=== PATIENT | male | born 1975 | race Two or more races ===

== ENCOUNTER → 2022-03-27 | Outpatient (CLI) | payer MEDICAID, SELFPAY ==
--- NOTE | 2022-03-27 11:39 | US_ITS ---
STUDY: THYROID ULTRASOUND REASON FOR EXAM: Male, 46 years old. MASS TECHNIQUE: Ultrasound evaluation of the thyroid was performed with real-time and static franklin-scale imaging. COMPARISON: None. FINDINGS: RIGHT LOBE: The right lobe of the thyroid gland measures 6.2 x 2.0 x 1.5 cm. There is a midpole 0.5 x 0.4 x 0.2 cm mixed solid and cystic nodule with smooth margins.. There are no demonstrated solid, cystic or complex lesions. LEFT LOBE: The left lobe of the thyroid gland measures 5.7 x 2.3 x 1.2 cm. There is a homogeneous echotexture. Midpole 0.4 x 0.3 x 0.2 cm mixed solid and cystic nodule with smooth margins. ISTHMUS: The isthmus measures 0.3 cm . The regional lymph nodes are normal. US/Thyroid IMPRESSION: Multinodular goiter as above. Electronically Signed: Loy Light MD, KIERRA at 15:55 EDT ,
== END | disposition home or self-care (01) ==
LOC: US 11:37
PROVIDERS: PCP Family Medicine; Referring Provider Family Medicine; Visit Provider Family Medicine
DX: R22.1 Localized swelling, mass and lump, neck (principal)
CPT/HCPCS: 76536

== ENCOUNTER 2022-04-15 13:06 | Outpatient (RCR) | payer MEDICAID, SELFPAY ==
--- NOTE | 2022-04-16 08:24 | HP.FCE ---
Floor (Occasional 1-33% of Day): 35# Floor (Frequent 34-66% of Day): 18# Floor (Constant 67-100% of Day): NA Floor PDL: Light-Medium Knee (Occasional 1-33% of Day): 35# Knee (Frequent 34-66% of Day): 18# Knee (Constant 67-100% of Day): NA Knee PDL: Light-Medium Waist (Occasional 1-33% of Day): 35# Waist (Frequent 34-66% of Day): 18# Waist (Constant 67-100% of Day): NA Waist PDL: Light-Medium Shoulder (Occasional 1-33% of Day): 25# Shoulder (Frequent 34-66% of Day): 12.5# Shoulder (Constant 67-100% of Day): NA Shoulder PDL: Light Overhead (Occasional 1-33% of Day): 10# Overhead (Frequent 34-66% of Day): NA Overhead (Constant 67-100% of Day): NA Overhead PDL: Sedentary Comments: lifting from floor- knee and waist levels a LIGHT-MEDIUM PHYSICAL demand level. lifting from shoulder level LIGHT PHYSICAL DEMAND level. lifting from overhead a SEDENTARY PHYSICAL DEMAND Level Bending: Occasional Ability (1-33% of day) Squatting: Occasional Ability (1-33% of day) Kneeling: Occasional Ability (1-33% of day) Comments: with external support Reaching out: Frequent Ability (34-66% of day) Reaching up: Frequent Ability (34-66% of day) Sitting: Frequent Ability (34-66% of day) Walking: Occasional Ability (1-33% of day) Standing: Occasional Ability (1-33% of day) Duration Sedentary Sedentary Light Light Light Medium Medium Medium Heavy Very Heavy Heavy Occasional (0-33% of day) Frequent (34-66% of day) Constant (67-100% of day) 10 # Negligible Negligible 15 # 8 # Negligible 20 # 10# Negli. 35 # 18 # 7 # 50 # 25 # 10 # 75 # 100 # >100 # 38 # 50 # >50 # 15 # 20 # >20 # Weight:: 62 kg Hand Dominance: right Medical History Including Restrictions: Pt was in good health until he began working at [employer]- pt states after two weeks of performing his job duties-. pt started having UE, left shoulder pain- thoracic pain along with bilateral heal pain- pt states he has been to his doctor and is performing stretches that he was given- states this does help but once back at work he becomes very painful in left shoulder-left thoracic region and has develop heal pain- pt has order for physical therapy and has scheduled apt for next week. Diagnoses: bilateral heal pain. low back pain. thoracic back pain. left shoulder pain Symptoms: pain left shoulder. pain left thoracic region. pain right heal. Pain: pt states he has had to leave work due to pain-. pt states current pain is 5/10. heart rate 84. throughout assessment pts pain level did increase to 8/10 and did stop him from completing some of the requested tasks. Work History: Pt works for [employer]- pt states he started working for [employer] 6 months ago-. pt states in October 2021 he began having difficulty with pain. 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 ADLS: pt states lives in a town house with family-. pt states he can dress and bath himself IND with ADLs and IADLS. pt states pain limits his abilities ROM: pt demo ROM all WNL Strength: peak force right shoulder flexion 7# left 4#. peak force right biceps 18# left 14#. peak force right triceps 13# left 12#. peak force right hip flexion 14# left 14#. peak force right hamstring 14# left 14#. peak force right quadricep 14# left 153 Right Industrial Health And Safety Professor Strength Average: 51.66 Right Industrial Health [employer] Safety Professor Strength Percentile: <1.1% Left Industrial [employer] Safety Professor Strength Average: 41.66 Left Industrial [employer] Safety Professor Strength Percentile: <1.4% Right Lateral Pinch Average: 4.00 Right Lateral Pinch Percentile: <10% Left Lateral Pinch Average: 2.00 Left Lateral Pinch Percentile: <10% Right Tripod Pinch Average: 4.00 Right Tripod Pinch Percentile: <10% Left Tripod Pinch Average: 4.00 Left Tripod Pinch Percentile: <10% Comments: pt demo with 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 Sensation: denies Fine Motor: denies Balance: functional reach 11.5. Interpretation: A score of 6 or less indicates a significant. increased risk for falls. A score between 6-10 inches indicates a. moderate risk for falls. No loss of balance was noted during the assessment. Bending: pt demo the ability to bend forward 3/3x 10/10x ( with reports of pain 6.5/10). heart rate 78. pt completed 10/10x rapidly ( no change in speed) pain 8/10. pt can bend forward on an occasional ability Squatting: pt demo the ability to squat 3/3x, 10/10x. pt demo the ability to perform 3//10x rapidly- pt stated pain was at bilateral kneel and heal 8/10. heart rate 88. pt can squat on a occasional ability Kneeling: pt demo the ability to kneel 3/3x, 6/10x with use of external support - pt reported knee pain and arm pain at elbow with use of UE for pushing up to standing. heart rate 83. pt can kneel on occasional ability Reaching out/up: pt demo the ability to reach up 3/3x 10/10x heart rate 94 and 10/10x rapidly. pt demo the ability to reach out 3/3x, 10/10x heart rate heart rate 78, 10/10 rapidly. pt reported thoracic pain left side 8/10- pt holding his breath and making facial grimace. pt can reach up/out on frequent ability Walking: heart rate 91-pt able to ambulate for 7 min - had to stop due to his heal right heal pain. pt ambulates with shuffled gait patter- shoes scrapping on floor with each step-. pt ambulates with hips in external rotation. pt can ambulate on occasional ability Standing: pt demo the ability to stand for 4 min with shifting body wt. pt states increase heal pain. pain ranged from 6/10 to 8/10. pt can stand on occasional ability Sitting: pt demo the ability to sit for 45 min with no expressed or apparent discomfort. pt can sit on frequent ability Climbing Stairs: pt descended 10 steps with a single leg step pattern - ascending 10 steps with reciprocal step pattern. Floor Lift: pt demonstrated the ability to maximally lift 35# from floor level with poor lifting mechanics. A LIGHT MEDIUM PHYSICAL DEMAND levels. Knee Lift: pt demonstrated the ability to maximally lift 35# from knee level with poor lifting mechanics. A LIGHT MEDIUM PHYSICAL DEMAND levels Waist Lift: pt demonstrated the ability to maximally lift 35# from knee level with fair lifting mechanics. A LIGHT MEDIUM PHYSICAL DEMAND levels Shoulder Lift: pt demonstrated the ability to maximally lift 25# from shoulder level with fair lifting mechanics. A LIGHT MEDIUM PHYSICAL DEMAND levels Overhead Lift: pt demonstrated the ability to maximally lift 10# from overhead level with fair lift mechanics. A SEDENTARY PHYSICAL demand levels. 6/10 pain bilateral elbows and right heals Carrying: pt demo the ability to carry 25# with good ability - shuffled gait with external rotation of the hips Comments: pain is limiting factor on pts abilities-. pain ranged from 6/10 to 8/10 throughout assessment. work demands will continue to cause pain for pt at this time.
--- NOTE | 2022-04-16 08:24 | HP.OTFCE.D ---
FCE D/C Summary - Discharge ELIEZER ZELAYA was seen for a one time visit for an FCE on 04/15/22 and is discharged.
== END 2022-04-15 19:00 | disposition home or self-care (01) ==
LOC: OT 13:06
PROVIDERS: PCP Family Medicine; Referring Provider Nurse Practitioner; Visit Provider Nurse Practitioner
DX: M54.50 Low back pain, unspecified (principal); X50.3XXA Overexertion from repetitive movements, initial encounter; M25.512 Pain in left shoulder
CPT/HCPCS: 97750

== ENCOUNTER 2022-07-09 17:30 | Outpatient (RCR) | payer MEDICAID, SELFPAY ==
--- NOTE | 2022-04-25 17:56 | HP.PTEVAL_ITS ---
Patient's Visit Information ELIEZER ZELAYA is a 46 year old M referred to Physical Therapy by Maryann Benjamin DO with a diagnosis of heel pain, back pain. Date of Evaluation: 04/25/22 Physical Therapist: SHERI SotoT, OCS, CSCS - Visit Plan Frequency: 2x /Week Duration: 4-6 Weeks Plan: Pt has L shoulder impingement, B PFitis, and core weakness leading to his pain and needs a rest from work but cannot take it. 2x/week for 4-6 weeks... 1. rollout ansd stretch B PF and gastroc, teach eccentric strength. 2. core strength for LB. 3. RC and postural focus and strength for L shoulder. Body mechanics. Pt needs late times so 60 minutes not an options but progress to I at home with these exercises as tolerated, he needs to rest from job but cannot - Subjective I have pain in L heel and L elbow and L LB and shoulder. 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 cArrying things that are up to 150#. Has done that 6 months. Has been painful for 5 months. Body is not getting used to it. Pain varies from 5/10 to 7/10. Hurts after work every day. Better on days off and does not have much pain. Sleep is OK. Hard after first day of work week. Hobbies include TV. No regular exercise currently. Works too much now. Now stretches alot. Wall gastroc stretch, LB stretch legs OH, quad stretch in kneeling. Home activities are normal but has to take it easy after walking 15+ minutes. Has 6 more month in contract to work. 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 - Objective Walks I and transfers I. No antalgia, posture is hunched over and kyphotic in T/S with forward scap. Increased lordosis in L/S. Tender to touch in B heels minimally on plantar surface R >L and supraspinatus tendon in L shoulder. + empty can test L, - drop arm and ext rot lag test. AROM LE WNL and good flexibility throughout. strength is 4/5 in hips and ankles and knees exept abd and ext 4-, Some pain L LB with ext and flexion hips. reflexes 2/3 patella and achilles and bi and tri. sensation UE and LE WNL to gross light touch. UE AROM WNL, strenfgth shoulder 4- L rotations and abd/flexion with pain ext rotation adn flexion, abd, empty can. elbows and wrist AROM and strength WFL and symmterical without pain. - Balance/Special Test Scores Lower Extremity Functional Score: 36 - Goals Goal 1:: Feet pain manageable and 1/10 at worst. Goal Time Frame: 4-6 Weeks Goal 2:: I appropriate LE stretching, core sterngth and shoulder streength to manage conditions Goal Time Frame: 4-6 Weeks Goal 3:: Pt feel 50% better overall after work and able to play kids without increased pain Goal Time Frame: 4-6 Weeks Goal 4:: Lift arm L without increased pain. Goal Time Frame: 4-6 Weeks Goal 5:: 56 LEFS Goal Time Frame: 4-6 Weeks - Rehabilitation Potential Physical Therapy Diagnosis: plantarfasciitis, shoulder impingement L and core weakness leading to funcitonal problems. Rehabilitation Potential: Good - Anticipated Interventions Patient/Client Instruction: Educate patient on: Condition, Plan of Care For the Purpose of:: To decrease pain, To increase ROM, To improve muscle performance and motor function, To increase tolerance to activity/condition/position, To improve ability of physical actions for home/community/work/leisure Therapeutic Exercise to Include: Strength training, Postural training, Passive ROM, Active ROM, Dynamic Lumbar Stabilization, Scapular Strength/Stabilization For the Purpose of:: To decrease pain, To increase ROM, To improve nutrient delivery to tissue, To improve muscle performance and motor function, To improve ability to perform ADL's, To improve performance and independence with ADL's, To improve ability of physical actions for home/community/work/leisure Manual Therapy Techniques to Include: Mobilization, Passive ROM, Soft tissue mobilization For the Purpose of:: To decrease pain, To improve nutrient delivery to tissue Thank you for the opportunity to evaluate your patient. For Medicare and Medicare HMO plans, please review the plan of care and approve it. It will need to be FAXED BACK to us at [phone] for Medicare purposes. For Medicare only, by signing this I certify the plan of care. Please let me know if there are questions or concerns regarding this plan of care. Physician Signature: Date:
--- NOTE | 2022-05-28 18:19 | HP.PTREVAL_ITS ---
Maryann Benjamin, DO, It has been my pleasure to treat ELIEZER ZELAYA over the last 9 visits for heel pain, back pain. Please see the progress note below for an update on the physical therapy plan of care! Subjective: Work is in department with less work for 8 weeks. Feel better overall. Stretches at work help. Resting and stretching help.Doing exercises at home. Saw foot doctor. Better. Objective/Function: Good LB AROM, mild extension limitations without pain today. Walks with wide PETER and avoids pushoff but coreects with VC. Full L UE AROM without hesitation today. Overall good progress and wants to try to continue at home vs more therapy, will call if problems. Plan Plan: f/u three weeks for recheck goals, L UE AROM, LB AROM and achilles tenderness and gait. Balance/Gait/Functional tests - Balance/Special Test Scores Lower Extremity Functional Score: 37 Goals Goal 1:: Feet pain manageable and 1/10 at worst. Goal Time Frame: 4-6 Weeks Goal Progress: Progressing Goal 2:: I appropriate LE stretching, core sterngth and shoulder streength to manage conditions Goal Time Frame: 4-6 Weeks Goal Progress: Goal Met Goal 3:: Pt feel 50% better overall after work and able to play kids without increased pain Goal Time Frame: 4-6 Weeks Goal Progress: Goal Met Goal 4:: Lift arm L without increased pain. Goal Time Frame: 4-6 Weeks Goal Progress: Goal Met Goal 5:: 56 LEFS Goal Time Frame: 4-6 Weeks Goal Progress: Progressing Anticipated Interventions Patient/Client Instruction: Educate patient on: Condition, Plan of Care For the Purpose of:: To decrease pain, To increase ROM, To improve muscle performance and motor function, To increase tolerance to activity/condition/position, To improve ability of physical actions for home/community/work/leisure Therapeutic Exercise to Include: Strength training, Postural training, Passive ROM, Active ROM, Dynamic Lumbar Stabilization, Scapular Strength/Stabilization For the Purpose of:: To decrease pain, To increase ROM, To improve nutrient delivery to tissue, To improve muscle performance and motor function, To improve ability to perform ADL's, To improve performance and independence with ADL's, To improve ability of physical actions for home/community/work/leisure Manual Therapy Techniques to Include: Mobilization, Passive ROM, Soft tissue mobilization For the Purpose of:: To decrease pain, To improve nutrient delivery to tissue Please do not hesitate to contact me at [phone] by phone or Fax: if you have questions or concerns regarding this new plan of care! Sincerely, Jose Reynoso, DPT, OCS, CSCS
--- NOTE | 2022-07-09 18:15 | HP.PTDCSUM ---
It has been my pleasure to treat ELIEZER ZELAYA referred by Maryann Benjamin DO, with the diagnosis of heel pain, back pain for a total of 10 visit(s). Discharge Date: 07/09/22 Please see the following information for a summary of their discharge status. Subjective: Better. I can walk normal. Feet still hurt on and off especially with busy working day but goes away with stretching. Back feels OK. L shoulder up to 2/10 at times but not often. Does not have to do hard job anymore and never will as he is done with this contract in 3 months. R and L heel Pain Intensity (Out of 10): 5 Left shoulder Pain Intensity (Out of 10): 2 LB Pain Intensity (Out of 10): 5 % Improvement: 65 Objective/Function: LB AROM full and without pain today, Shoulder aROM full, slight 1/10 dsicomfort with L shoulder elevation. Strength is 4/5 without pain in flexiona dn abd, and rotations,. Ankle aROM WFL and walking without gait deficits today and pushing off well. he wants to be done and manage this on his own. Goal 1:: Feet pain manageable and 1/10 at worst. Goal Progress: Goal Met Goal 2:: I appropriate LE stretching, core sterngth and shoulder streength to manage conditions Goal Progress: Goal Met Goal 3:: Pt feel 50% better overall after work and able to play kids without increased pain Goal Progress: Goal Met Goal 4:: Lift arm L without increased pain. Goal Progress: Goal Met Goal 5:: 56 LEFS Goal Progress: Progressing Plan: d/c If there are questions or concerns regarding this patient's physical therapy, please feel free to call me at [phone]. Thank you for the referral of this patient. Sincerely, Jose Reynoso, DPT, OCS, CSCS Balance/Gait/Functional tests - Balance/Special Test Scores Lower Extremity Functional Score: 53
== END 2022-07-09 19:00 | disposition home or self-care (01) ==
LOC: PT 17:30
PROVIDERS: PCP Family Medicine; Referring Provider Family Medicine; Visit Provider Family Medicine
DX: M79.673 Pain in unspecified foot (principal); M54.6 Pain in thoracic spine; M54.50 Low back pain, unspecified
CPT/HCPCS: 97110; 97140; 97163; 97164; 97530